=== PATIENT | female | born 1960 | race Caucasian/White ===

== ENCOUNTER 2024-01-14 01:40 | Emergency (ER) | payer OTHER ==
[~2024-01-14] VITALS: Ht 160 cm; Wt 68.0 kg
[2024-01-14 01:50] VITALS: BP 142/59; PULSE 66; RESP 18; TEMP 97.8; O2SAT 99
[2024-01-14] MEDS: FAMOTIDINE 20 MG TAB PO ONE (02:27)
[2024-01-14] MEDS: predniSONE 20 MG TAB PO ONE (02:27)
[2024-01-14] MEDS: diphenhydrAMINE 50 MG/ML VIAL IM ONE (02:28)
[2024-01-14] MEDS ORDERED: PRED20TA5 PO (02:47)
[2024-01-14] MEDS ORDERED: DIPH25TA53 PO (02:47)
[2024-01-14 02:53] VITALS: BP 142/59; PULSE 66; RESP 18; TEMP 97.8; O2SAT 99
== END 2024-01-14 02:53 | disposition home or self-care (01) ==
LOC: MED 01:40
DX: T78.49XA Other allergy, initial encounter (principal); L50.9 Urticaria, unspecified; E11.9 Type 2 diabetes mellitus without complications; I10 Essential (primary) hypertension; E78.5 Hyperlipidemia, unspecified; Z79.899 Other long term (current) drug therapy; X58.XXXA Exposure to other specified factors, initial encounter
CPT/HCPCS: 96372; 99283; J1200; J7512